=== PATIENT | female | born 1985 | race Hispanic/Latino ===

== ENCOUNTER 2017-08-11 22:29 | Emergency (ER) | payer OTHER, SELFPAY ==
[2017-08-11] MEDS ORDERED: ACETAMINOPHEN 500 MG TAB ONE (23:32)
--- NOTE | 2017-08-12 00:27 | ER ---
Nurse's Notes [facility] Name: Katerina Pendleton Age: 31 yrs Sex: Female : 1985 Arrival Date: 08/11/2017 Time: 22:30 Bed 18 Private MD: Diagnosis: Acute streptococcal tonsillitis, unspecified Presentation: 08/11 23:06 Presenting complaint: Patient states: she started feeling achy yesterday today she has bb a sore throat and sharp pain to r ear when swallowing also chills. Transition of care: patient was not received from another setting of care. Onset of symptoms was August 10, 2017. Care prior to arrival: None. 23:06 Method Of Arrival: Ambulatory bb 23:06 Acuity: MARILYN 4 bb Triage Assessment: 23:53 Respiratory: Onset: The symptoms/episode began/occurred today, the patient has mild jd3 shortness of breath. 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 - Social history:: Smoking status: Patient uses tobacco products, denies chronic smoking, but will smoke occasionally, Patient uses alcohol, but reports only rare drinking. Patient/guardian denies using street drugs. Screenin:52 Abuse screen: Denies threats or abuse. Nutritional screening: No deficits noted. jd3 Tuberculosis screening: No symptoms or risk factors identified. Fall Risk None identified. Assessment: 23:51 General: Appears uncomfortable, Behavior is cooperative, appropriate for age, anxious. jd3 Pain: Complains of pain in right ear Quality of pain is described as aching, sharp. Neuro: Level of Consciousness is awake, alert, obeys commands, Oriented to person, place, time, situation. Cardiovascular: Heart tones S1 S2 present Capillary refill < 3 seconds Patient's skin is warm and dry. Respiratory: Airway is patent Respiratory effort is even, unlabored, Respiratory pattern is regular, symmetrical, Breath sounds are clear bilaterally. GI: Abdomen is round Bowel sounds present X 4 quads. Abd is soft and non tender X 4 quads. Reports nausea. : No signs and/or symptoms were reported regarding the genitourinary system. EENT: No signs and/or symptoms were reported regarding the EENT system. Derm: Skin is intact, Skin is dry, Skin is normal, Skin temperature is warm. Musculoskeletal: Circulation, motion, and sensation intact. Range of motion: intact in all extremities. 08/12 00:19 Reassessment: Patient appears in no apparent distress at this time. Patient and/or jd3 family updated on plan of care and expected duration. Pain level reassessed. Patient is alert, oriented x 3, equal unlabored respirations, skin warm/dry/pink. pt resting in bed with eyes closed, even and unlabored respirations, no signs of distress noted at this time. 00:53 Reassessment: Patient appears in no apparent distress at this time. Patient and/or jd3 family updated on plan of care and expected duration. Pain level reassessed. Patient is alert, oriented x 3, equal unlabored respirations, skin warm/dry/pink. pt reported understanding of discharge instructions, even and steady gait upon discharge. Vital Signs: 08/11 23:08 BP 158 / 76; Pulse 117; Resp 20 S; Temp 100.4(TE); Pulse Ox 100% on R/A; Weight 117.93 bb kg (R); Height 5 ft. 3 in. (160.02 cm) (R); Pain 9/10; 08/12 00:18 BP 105 / 70; Pulse 117; Resp 17 S; Pulse Ox 98% on R/A; jd3 00:51 BP 123 / 76; Pulse 109; Resp 19 S; Temp 99.6(O); Pulse Ox 96% on R/A; jd3 08/11 23:08 Body Mass Index 46.06 (117.93 kg, 160.02 cm) bb ED Course: 08/11 22:30 Patient arrived in ED. ds1 23:07 Triage completed. bb 23:08 Arm band placed on Patient placed in waiting room. Family accompanied patient. bb 23:30 Ric Díaz PA is PHCP. jr8 23:30 Israel Hong MD is Attending Physician. jr8 23:51 Kameron Lim RN is Primary Nurse. jd3 23:53 Patient has correct armband on for positive identification. Bed in low position. Call jd3 light in reach. Side rails up X 1. Adult w/ patient. 08/12 00:02 X-ray completed. Portable x-ray completed in exam room. Patient tolerated procedure kw well. 00:05 XRAY Chest (1 view) In Process Unspecified. EDMS 00:52 No provider procedures requiring assistance completed. Patient did not have IV access jd3 during this emergency room visit. Administered Medications: 08/11 23:11 Drug: Tylenol 1000 mg Route: PO; bb 08/12 00:43 Follow up: Response: No adverse reaction jd3 00:51 Drug: Augmentin 875 mg Route: PO; jd3 00:51 Follow up: Response: Medication administered at discharge. jd3 Outcome: 00:27 Discharge ordered by . vickie 00:52 Discharged to home ambulatory, with friend. jd3 00:52 Condition: stable 00:52 Discharge instructions given to patient, friend, Instructed on discharge instructions, follow up and referral plans. medication usage, Demonstrated understanding of instructions, follow-up care, medications, Prescriptions given X 2. 00:54 Patient left the ED. jd3 Signatures: Dispatcher [employer] EDLA Zina Kee ds1 Ana Castillo, RN RN bb Sadie Lara Josh, PA PA jr8 Kameron Lim RN RN jd3 Corrections: (The following items were deleted from the chart) 00:54 00:51 BP 123 / 76; Pulse 109bpm; Resp 19bpm; Spontaneous; Pulse Ox 93% RA; jd3 jd3
--- NOTE | 2017-08-12 00:27 | EDPHYS ---
Physician Documentation [facility] Name: Katerina Pendleton Age: 31 yrs Sex: Female : 1985 Arrival Date: 08/11/2017 Time: 22:30 Bed 18 Private MD: ED Physician Israel Hong HPI: 08/12 00:25 This 31 yrs old Female presents to ER via Ambulatory with complaints of jr8 Breathing Difficulty, Ear Pain, Chills. 00:25 The patient presents with sore throat. The patient describes throat pain as constant. jr8 Onset: The symptoms/episode began/occurred acutely, yesterday. Severity of symptoms: At their worst the symptoms were mild, in the emergency department the symptoms are unchanged. Modifying factors: The symptoms are alleviated by nothing, the symptoms are aggravated by nothing. Associated signs and symptoms: Pertinent positives: cough, shortness of breath. The patient has not experienced similar symptoms in the past. The patient has not recently seen a physician. 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 - Social history:: Smoking status: Patient uses tobacco products, denies chronic smoking, but will smoke occasionally, Patient uses alcohol, but reports only rare drinking. Patient/guardian denies using street drugs. ROS: 08/12 00:25 Eyes: Negative for injury, pain, redness, and discharge, Neck: Negative for injury, jr8 pain, and swelling, Cardiovascular: Negative for chest pain, palpitations, and edema, Abdomen/GI: Negative for abdominal pain, nausea, vomiting, diarrhea, and constipation, Back: Negative for injury and pain, MS/Extremity: Negative for injury and deformity, Skin: Negative for injury, rash, and discoloration, Neuro: Negative for headache, weakness, numbness, tingling, and seizure. ENT: Positive for sore throat, Negative for drainage from ear(s), ear pain, tinnitus, nasal discharge, rhinorrhea, sinus congestion. Respiratory: Positive for cough, Negative for shortness of breath, sputum production, wheezing. Exam: 00:25 Head/Face: Normocephalic, atraumatic. Eyes: Pupils equal round and reactive to light, jr8 extra-ocular motions intact. Lids and lashes normal. Conjunctiva and sclera are non-icteric and not injected. Cornea within normal limits. Periorbital areas with no swelling, redness, or edema. Neck: Trachea midline, no thyromegaly or masses palpated, and no cervical lymphadenopathy. Supple, full range of motion without nuchal rigidity, or vertebral point tenderness. No Meningismus. Cardiovascular: Sinus tachycardia with a normal S1 and S2. No gallops, murmurs, or rubs. Normal PMI, no JVD. No pulse deficits. Respiratory: Lungs have equal breath sounds bilaterally, clear to auscultation and percussion. No rales, rhonchi or wheezes noted. No increased work of breathing, no retractions or nasal flaring. Abdomen/GI: Soft, non-tender, with normal bowel sounds. No distension or tympany. No guarding or rebound. No evidence of tenderness throughout. Back: No spinal tenderness. No costovertebral tenderness. Full range of motion. Skin: Warm, dry with normal turgor. Normal color with no rashes, no lesions, and no evidence of cellulitis. MS/ Extremity: Pulses equal, no cyanosis. Neurovascular intact. Full, normal range of motion. Neuro: Awake and alert, GCS 15, oriented to person, place, time, and situation. Cranial nerves II-XII grossly intact. Motor strength 5/5 in all extremities. Sensory grossly intact. Cerebellar exam normal. Normal gait. 00:25 ENT: Exam is negative for earache, ear discharge, TM abnormalities, nasal discharge, Mouth: Lips: moist, Oral mucosa: pink and intact, moist, Gums: pink, Tongue: is moist, Posterior pharynx: Airway: patent, Tonsils: bilaterally enlarged, with erythema, with exudate, no ulcerations, Uvula: midline, non-edematous, no erythema, swelling, is not appreciated, erythema, is not appreciated. Vital Signs: 08/11 23:08 BP 158 / 76; Pulse 117; Resp 20 S; Temp 100.4(TE); Pulse Ox 100% on R/A; Weight 117.93 bb kg (R); Height 5 ft. 3 in. (160.02 cm) (R); Pain 9/10; 08/12 00:18 BP 105 / 70; Pulse 117; Resp 17 S; Pulse Ox 98% on R/A; jd3 00:51 BP 123 / 76; Pulse 109; Resp 19 S; Temp 99.6(O); Pulse Ox 96% on R/A; jd3 08/11 23:08 Body Mass Index 46.06 (117.93 kg, 160.02 cm) bb MDM: 08/11 23:30 Patient medically screened. jr8 08/12 00:25 Data reviewed: vital signs, nurses notes, lab test result(s), radiologic studies, plain jr8 films, and as a result, I will discharge patient. Data interpreted: Pulse oximetry: on room air is 98 %. Interpretation: normal. Counseling: I had a detailed discussion with the patient and/or guardian regarding: the historical points, exam findings, and any diagnostic results supporting the discharge/admit diagnosis, lab results, radiology results, the need for outpatient follow up, a family practitioner, to return to the emergency department if symptoms worsen or persist or if there are any questions or concerns that arise at home. 08/11 23:10 Order name: Flu; Complete Time: 00:24 08/11 23:10 Order name: Strep; Complete Time: 00:24 08/11 23:30 Order name: XRAY Chest (1 view) [facility] Administered Medications: 08/11 23:11 Drug: Tylenol 1000 mg Route: PO; 08/12 00:43 Follow up: Response: No adverse reaction jd3 00:51 Drug: Augmentin 875 mg Route: PO; jd3 00:51 Follow up: Response: Medication administered at discharge. jd3 Disposition: 02:00 Co-signature as Attending Physician, Israel Hong MD. pkl Disposition: 08/12/17 00:27 Discharged to Home. Impression: Acute streptococcal tonsillitis, unspecified. - Condition is Stable. - Discharge Instructions: Strep Throat, Tonsillitis. - Prescriptions for Augmentin 875- 125 mg Oral Tablet - take 1 tablet by ORAL route every 12 hours for 10 days; 20 tablet. Tessalon Perles 100 mg Oral Capsule - take 1 capsule by ORAL route every 8 hours As needed; 15 capsule. - Medication Reconciliation Form, Thank You Letter, Antibiotic Education, Prescription Opioid Use form. - Follow up: Private Physician; When: 2 - 3 days; Reason: Recheck today's complaints, Continuance of care, Re-evaluation by your physician. - Problem is new. - Symptoms have improved. Signatures: Dispatcher [employer] Israel Saravia MD MD pkl Ballard, Brenda, RN RN bb Ric Díaz PA PA jr8 Kameron Lim RN RN jd3
[2017-08-12] MEDS ORDERED: AMOX/K CLAV 875 MG TAB ONE (01:04)
--- NOTE | 2017-08-12 07:42 | RAD REPORT ---
EXAM DESCRIPTION: RAD - Chest Single View - 08/12/2017 12:03 am CLINICAL HISTORY: Cough, fever, body aches COMPARISON: None. TECHNIQUE: AP portable chest image was obtained 2351 hours . FINDINGS: Lungs are clear. Heart and vasculature are normal. No measurable pleural effusion and no p neumothorax. No gross bony abnormality seen. No acute aortic findings suspected. IMPRESSION: No acute cardiopulmonary process.
== END 2017-08-12 00:54 | disposition home or self-care (01) ==
LOC: ER 22:29
DX: J03.00 Acute streptococcal tonsillitis, unspecified (principal); Z72.0 Tobacco use
CPT/HCPCS: 71045; 87081; 87804; 99283

== ENCOUNTER 2018-03-14 07:36 | Emergency (ER) | payer SELFPAY ==
--- NOTE | 2018-03-14 08:20 | ER ---
Nurse's Notes [facility] Name: Katerina Pendleton Age: 32 yrs Sex: Female : 1985 Arrival Date: 03/14/2018 Time: 07:38 Bed 16 Private MD: Diagnosis: Acute laryngopharyngitis Presentation: 03/14 07:45 Presenting complaint: Patient states: sore throat for over a week, with pain when ch swallowing. taking prednisone and benzonate from a tele doctor. 07:45 Transition of care: patient was not received from another setting of care. Onset of ch symptoms was March 05, 2018. Risk Assessment: Do you want to hurt yourself or someone else? Patient reports no desire to harm self or others. Initial Sepsis Screen: Does the patient meet any 2 criteria? No. Patient's initial sepsis screen is negative. Does the patient have a suspected source of infection? No. Patient's initial sepsis screen is negative. Care prior to arrival: Medication(s) given: prednisone and benzonate. 07:45 Method Of Arrival: Ambulatory 07:45 Acuity: MARILYN 4 ch Triage Assessment: 08:00 General: Appears in no apparent distress. comfortable, Behavior is calm, cooperative, ch appropriate for age. Pain: Complains of pain in throat Pain currently is 8 out of 10 on a pain scale. Pain began gradually, over a week ago. EENT: Nares are clear Oral mucosa is moist. Good dentition noted. Throat is reddened has patchy exudate has enlarged tonsils bilaterally with gag reflex present, Reports nasal congestion pain when swallowing. Neuro: No deficits noted. Cardiovascular: No deficits noted. Respiratory: Airway is patent Respiratory effort is even, unlabored, Breath sounds are clear bilaterally. GI: No signs and/or symptoms were reported involving the gastrointestinal system. : No signs and/or symptoms were reported regarding the genitourinary system. Derm: Skin is pink, warm \T\ dry. 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 - Social history:: Smoking status: Patient uses tobacco products, denies chronic smoking, but will smoke occasionally. - Family history:: not pertinent. - Ebola Screening: : Patient negative for fever greater than or equal to 101.5 degrees Fahrenheit, and additional compatible Ebola Virus Disease symptoms Patient denies exposure to infectious person Patient denies travel to an Ebola-affected area in the 21 days before illness onset No symptoms or risks identified at this time. - Hospitalizations: : No recent hospitalization is reported. Screenin:03 Abuse screen: Denies threats or abuse. Denies injuries from another. Nutritional ch screening: No deficits noted. Tuberculosis screening: No symptoms or risk factors identified. Fall Risk None identified. Assessment: 08:03 Reassessment: Patient appears in no apparent distress at this time. Patient and/or family updated on plan of care and expected duration. Pain level reassessed. Patient is alert, oriented x 3, equal unlabored respirations, skin warm/dry/pink. Respiratory: Airway is patent Trachea midline Respiratory effort is even, unlabored. 08:32 Reassessment: Patient appears in no apparent distress at this time. No changes from previously documented assessment. Patient and/or family updated on plan of care and expected duration. Pain level reassessed. Patient is alert, oriented x 3, equal unlabored respirations, skin warm/dry/pink. Respiratory: No deficits noted. Breath sounds are clear bilaterally. Vital Signs: 07:45 BP 128 / 85; Pulse 78; Resp 16; Temp 99; Pulse Ox 100% on R/A; Weight 117.93 kg; Height 5 ft. 3 in. (160.02 cm); Pain 8/10; 08:32 BP 118 / 62; Pulse 65; Resp 14; Temp 99.2; Pulse Ox 99% on R/A; Pain 6/10; ch 07:45 Body Mass Index 46.06 (117.93 kg, 160.02 cm) ED Course: 07:38 Patient arrived in ED. as 07:44 Jing Lock, RN is Primary Nurse. ch 07:45 Matthias Whitfield MD is Attending Physician. rn 07:45 Arm band placed on left wrist. Patient placed in an exam room, on a stretcher. 07:59 Triage completed. 08:03 No apparent distress. Resting quietly. 08:03 Patient has correct armband on for positive identification. Placed in gown. Bed in low ch position. Call light in reach. Side rails up X 1. 08:03 No provider procedures requiring assistance completed. Patient did not have IV access during this emergency room visit. Administered Medications: No medications were administered Outcome: 08:19 Discharge ordered by . rn 08:32 Discharged to home ambulatory, with family. 08:32 Condition: improved 08:32 Discharge instructions given to patient, Instructed on discharge instructions, follow up and referral plans. Demonstrated understanding of instructions, follow-up care. 08:33 Patient left the ED. Signatures: Jing Lock RN RN Babs García Roman, MD MD rn
--- NOTE | 2018-03-14 08:20 | EDPHYS ---
Physician Documentation [facility] Name: Katerina Pendleton Age: 32 yrs Sex: Female : 1985 Arrival Date: 03/14/2018 Time: 07:38 Bed 16 Private MD: ED Physician Matthias Whitfield HPI: 03/14 07:50 This 32 yrs old Female presents to ER via Unassigned with complaints of Sore rn Throat. 07:50 The patient presents with sore throat. The patient describes throat pain as raw, rn scratchy. Onset: The symptoms/episode began/occurred 1 week(s) ago. Severity of symptoms: At their worst the symptoms were mild, in the emergency department the symptoms are unchanged. Modifying factors: The symptoms are alleviated by nothing, the symptoms are aggravated by swallowing. The patient has experienced similar episodes in the past. REports sore throat, raw, for 1 week, called doctor on demand, prescribed steroids and cough medication, told was viral infection, got better, then symptoms returned, no fever. . 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 - Social history:: Smoking status: Patient uses tobacco products, denies chronic smoking, but will smoke occasionally. - Family history:: not pertinent. - Ebola Screening: : Patient negative for fever greater than or equal to 101.5 degrees Fahrenheit, and additional compatible Ebola Virus Disease symptoms Patient denies exposure to infectious person Patient denies travel to an Ebola-affected area in the 21 days before illness onset No symptoms or risks identified at this time. - Hospitalizations: : No recent hospitalization is reported. ROS: 07:50 Constitutional: Negative for fever, chills, and weight loss, ENT: + sore throat Neck: rn Negative for injury Cardiovascular: Negative for chest pain, palpitations, and edema, Respiratory: Negative for shortness of breath, cough, wheezing, and pleuritic chest pain. Exam: 07:50 Constitutional: This is a well developed, well nourished patient who is awake, alert, rn and in no acute distress. ENT: Mild pharyngeal erythema, + palatal petechiae, no tonsillar hypertrophy, no evidence of LEISURE STUDIES PROFESSOR. No stridor. Vital Signs: 07:45 BP 128 / 85; Pulse 78; Resp 16; Temp 99; Pulse Ox 100% on R/A; Weight 117.93 kg; Height ch 5 ft. 3 in. (160.02 cm); Pain 8/10; 08:32 BP 118 / 62; Pulse 65; Resp 14; Temp 99.2; Pulse Ox 99% on R/A; Pain 6/10; ch 07:45 Body Mass Index 46.06 (117.93 kg, 160.02 cm) ch MDM: 07:45 Patient medically screened. rn 08:18 Differential diagnosis: group A strep tonsillitis, laryngitis, pharyngitis, upper rn respiratory infection, viral syndrome. Data reviewed: vital signs, nurses notes, lab test result(s), and as a result, I will discharge patient. Counseling: I had a detailed discussion with the patient and/or guardian regarding: the historical points, exam findings, and any diagnostic results supporting the discharge/admit diagnosis, lab results, the need for outpatient follow up, to return to the emergency department if symptoms worsen or persist or if there are any questions or concerns that arise at home. Special discussion: I discussed with the patient/guardian in detail that at this point there is no indication for admission to the hospital. It is understood, however, that if the symptoms persist or worsen the patient needs to return immediately for re-evaluation. 03/14 07:49 Order name: Strep; Complete Time: 08:15 rn 03/14 08:17 Order name: Throat Culture EDMS Administered Medications: No medications were administered Disposition: 03/14/18 08:19 Discharged to Home. Impression: Acute laryngopharyngitis. - Condition is Stable. - Discharge Instructions: Laryngitis, Pharyngitis. - Medication Reconciliation Form, Thank You Letter, Antibiotic Education, Prescription Opioid Use form. - Follow up: Private Physician; When: As needed; Reason: Recheck today's complaints, Re-evaluation by your physician. - Problem is new. - Symptoms have improved. Signatures: Dispatcher [employer] EDMS Jing Lock RN RN Matthias Whitfield MD MD equine internship: (The following items were deleted from the chart) 08:33 08:19 03/14/2018 08:19 Discharged to Home. Impression: Acute laryngopharyngitis. ch Condition is Stable. Forms are Medication Reconciliation Form, Thank You Letter, Antibiotic Education, Prescription Opioid Use. Follow up: Private Physician; When: As needed; Reason: Recheck today's complaints, Re-evaluation by your physician. Problem is new. Symptoms have improved. rn
== END 2018-03-14 08:33 | disposition home or self-care (01) ==
LOC: ER 07:36
DX: J06.0 Acute laryngopharyngitis (principal)
CPT/HCPCS: 87070; 87081; 99281

== ENCOUNTER 2020-10-30 22:24 | Emergency (ER) | payer BC ==
--- OUTSIDE RECORDS SUMMARY | 2020-10-30 22:27 | XMS REPORT | Continuity of Care Document ---
:1985 Author Organization [facility] t Address [address] [place] [address] Care Team Providers Name Role Phone Pratik Galdamez DO Attending Clinician Manasa Elias Attending Clinician Doctor Unassigned, Name Attending Clinician Unavailable Problems This patient has no known problems. Allergies, Adverse Reactions, Alerts This patient has no known allergies or adverse reactions. Medications This patient has no known medications. Procedures This patient has no known procedures. 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
[2020-10-31] MEDS ORDERED: MORPHINE 4 MG/ML SYR ONE (00:03)
[2020-10-31] MEDS ORDERED: CLINDAMYCIN 900MG/D5W 900 MG/50 ML IVPB IV ONE (00:03)
[2020-10-31] MEDS ORDERED: ONDANSETRON 4 MG/2 ML VIAL ONE (00:03)
--- NOTE | 2020-10-31 00:40 | EDPHYS ---
Physician Documentation [facility] Name: Katerina Pendleton Age: 34 yrs Sex: Female : 1985 Arrival Date: 10/30/2020 Time: 22:35 Bed 23 Private MD: ED Physician Jamey Joy HPI: 10/30 23:36 This 34 yrs old Female presents to ER via Ambulatory with complaints of Facial jmm Swelling. 23:36 The patient or guardian reports pain, swelling. The complaints affect the right cheek. jmm Onset: The symptoms/episode began/occurred gradually, 1 day(s) ago. Associated signs and symptoms: Loss of consciousness: This patient did not experience any loss of consciousness. Pertinent negatives:. This is a 34 year old female with no chronic medical conditions that presents to the ED with complaints of right sided facial swelling. Began augmentin yesterday with no relief. . 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 - Social history:: Smoking status: Patient denies any tobacco usage or history of. ROS: 23:36 Constitutional: Negative for fever, chills, and weight loss, Cardiovascular: Negative jmm for chest pain, palpitations, and edema, Respiratory: Negative for shortness of breath, cough, wheezing, and pleuritic chest pain, Abdomen/GI: Negative for abdominal pain, nausea, vomiting, diarrhea, and constipation. 23:36 Skin: Positive for erythema. 23:36 All other systems are negative. Exam: 23:36 Constitutional: This is a well developed, well nourished patient who is awake, alert, jmm and in no acute distress. 23:36 Neck: Trachea midline, Supple Chest/axilla: Normal chest wall appearance and motion. Cardiovascular: Regular rate and rhythm. No edema appreciated Respiratory: Normal respirations, no respiratory distress appreciated Abdomen/GI: Non distended, soft Back: Normal ROM 23:36 Head/face: right sided facial swelling noted. 23:36 ENT: no submandibular swelling or pain, . 23:36 Skin: erythema noted to the right side of the cheek. 23:36 Neuro: Orientation: is normal, Mentation: is normal, Memory: is normal. 23:36 Psych: Behavior/mood is pleasant, cooperative. Vital Signs: 23:03 BP 114 / 61; Pulse 78; Resp 19; Temp 97; Pulse Ox 99% ; Weight 99.79 kg; Height 5 ft. 3 ea in. (160.02 cm); Pain 8/10; 23:03 Body Mass Index 38.97 (99.79 kg, 160.02 cm) ea MDM: 23:28 Patient medically screened. [facility] 10/31 00:38 Data reviewed: vital signs, nurses notes. Counseling: I had a detailed discussion with [facility] the patient and/or guardian regarding: the historical points, exam findings, and any diagnostic results supporting the discharge/admit diagnosis, the need for outpatient follow up, to return to the emergency department if symptoms worsen or persist or if there are any questions or concerns that arise at home. ED course: Patient will follow up with oral surgery tomorrow. Patient given strict return precautions. I do not suspect ludwigs angina. 10/30 23:35 Order name: Saline Lock; Complete Time: 23:52 [facility] Administered Medications: 10/30 23:47 Drug: Zofran (Ondansetron) 4 mg Route: IVP; Site: right antecubital; em 10/31 00:02 Follow up: Response: No adverse reaction em 10/30 23:50 Drug: morphine 4 mg Route: IVP; Site: right antecubital; em 10/31 00:02 Follow up: Response: No adverse reaction; Marked relief of symptoms; Pain is decreased; em RASS: Alert and Calm (0) 10/30 23:54 Drug: Clindamycin 900 mg Route: IVPB; Infused Over: 30 mins; Site: right antecubital; em 10/31 00:21 Follow up: Response: No adverse reaction; IV Status: Completed infusion; IV Intake: 50mlem Disposition: 04:15 Co-signature as Attending Physician, Jamey Joy MD. [email or web address] Disposition: 10/31/20 00:39 Discharged to Home. Impression: Facial Cellulitis. - Condition is Stable. - Discharge Instructions: Dental Abscess. - Prescriptions for Clindamycin HCl 300 mg Oral Capsule - take 1 capsule by ORAL route every 6 hours for 10 days; 40 capsule. Ultracet 37.5- 325 mg Oral Tablet - take 1 tablet by ORAL route every 6 hours - for up to 5 days; do not exceed 8 tablets per day.; 12 tablet. - Medication Reconciliation Form, Thank You Letter, Antibiotic Education, Prescription Opioid Use form. - Follow up: Bhavin Henry DDS; When: 2 - 3 days; Reason: Recheck today's complaints, Continuance of care, Re-evaluation by your physician. Signatures: Martin Sanches PA PA jmm Munoz, Edgar, RN RN Bernadette Albrecht RN RN Jamey Adams MD MD [email or web address] Corrections: (The following items were deleted from the chart) 00:48 00:39 10/31/2020 00:39 Discharged to Home. Impression: Facial Cellulitis. Condition is em Stable. Forms are Medication Reconciliation Form, Thank You Letter, Antibiotic Education, Prescription Opioid Use. Follow up: Bhavin Henry; When: 2 - 3 days; Reason: Recheck today's complaints, Continuance of care, Re-evaluation by your physician. katie
--- NOTE | 2020-10-31 00:40 | ER ---
Nurse's Notes [facility] Name: Katerina Pendleton Age: 34 yrs Sex: Female : 1985 Arrival Date: 10/30/2020 Time: 22:35 Bed 23 Private MD: Diagnosis: Facial Cellulitis Presentation: 10/30 23:03 Chief complaint: Patient states: Reports tooth pain that started two days ago reports ea calling [facility] they prescribed her antibiotics. Pt reports facial swelling and pain that does not go away even after using BC powder and ibuprofen. Coronavirus screen: At this time, the client does not indicate any symptoms associated with coronavirus-19. Ebola Screen: No symptoms or risks identified at this time. Initial Sepsis Screen: Does the patient meet any 2 criteria? No. Patient's initial sepsis screen is negative. Does the patient have a suspected source of infection? No. Patient's initial sepsis screen is negative. Risk Assessment: Do you want to hurt yourself or someone else? Patient reports no desire to harm self or others. Onset of symptoms was October 30, 2020. 23:03 Method Of Arrival: Ambulatory ea 23:03 Acuity: MARILYN 3 ea Triage Assessment: 23:07 General: Appears uncomfortable, Behavior is calm, cooperative, appropriate for age. ea Pain: Complains of pain in right side of head. 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 - Social history:: Smoking status: Patient denies any tobacco usage or history of. Screenin:07 Abuse screen: Denies threats or abuse. Nutritional screening: No deficits noted. ea Tuberculosis screening: No symptoms or risk factors identified. Fall Risk None identified. Assessment: 23:20 General: Appears in no apparent distress. uncomfortable, Behavior is calm, cooperative, em Denies fever. Pain: Complains of pain in right side of head Pain currently is 8 out of 10 on a pain scale. Neuro: Level of Consciousness is awake, alert, obeys commands, Oriented to person, place, time, situation. Cardiovascular: Capillary refill < 3 seconds Patient's skin is warm and dry. Respiratory: Airway is patent Respiratory effort is even, unlabored, Respiratory pattern is regular, symmetrical. Derm: Skin is intact, is healthy with good turgor, Skin is pink, warm \T\ dry. Musculoskeletal: Capillary refill < 3 seconds, Range of motion: intact in all extremities. 10/31 00:01 Reassessment: Patient appears in no apparent distress at this time. Patient and/or em family updated on plan of care and expected duration. Pain level reassessed. Patient is alert, oriented x 3, equal unlabored respirations, skin warm/dry/pink. Patient states feeling better. Patient states symptoms have improved. Vital Signs: 10/30 23:03 BP 114 / 61; Pulse 78; Resp 19; Temp 97; Pulse Ox 99% ; Weight 99.79 kg; Height 5 ft. 3 ea in. (160.02 cm); Pain 8/10; 23:03 Body Mass Index 38.97 (99.79 kg, 160.02 cm) ea ED Course: 22:35 Patient arrived in ED. am4 23:06 Triage completed. ea 23:20 Iam Hudson, RN is Primary Nurse. em 23:20 Arm band placed on. em 23:21 Patient has correct armband on for positive identification. Pulse ox on. NIBP on. em 23:25 Martin Sanches PA is PHCP. [facility] 23:26 Jamey Joy MD is Attending Physician. [facility] 23:26 Warm blanket given. [facility] 23:47 Inserted saline lock: 22 gauge in right antecubital area, using aseptic technique. em 10/31 00:39 Bhavin Henry DDS is Referral Physician. [facility] 00:47 No provider procedures requiring assistance completed. IV discontinued, intact, em bleeding controlled, No redness/swelling at site. Pressure dressing applied. Administered Medications: 10/30 23:47 Drug: Zofran (Ondansetron) 4 mg Route: IVP; Site: right antecubital; em 10/31 00:02 Follow up: Response: No adverse reaction em 10/30 23:50 Drug: morphine 4 mg Route: IVP; Site: right antecubital; em 10/31 00:02 Follow up: Response: No adverse reaction; Marked relief of symptoms; Pain is decreased; em RASS: Alert and Calm (0) 10/30 23:54 Drug: Clindamycin 900 mg Route: IVPB; Infused Over: 30 mins; Site: right antecubital; em 10/31 00:21 Follow up: Response: No adverse reaction; IV Status: Completed infusion; IV Intake: 50mlem Intake: 00:21 IV: 50ml; Total: 50ml. em Outcome: 00:39 Discharge ordered by MD. wilson 00:47 Discharged to home ambulatory, with family. em 00:47 Condition: improved 00:47 Discharge instructions given to patient, Instructed on discharge instructions, follow up and referral plans. medication usage, Demonstrated understanding of instructions, follow-up care, medications, Prescriptions given X 2. 00:48 Patient left the ED. em Signatures: Martin Sanches PA PA jmm Munoz, Edgar, RN Kristie Garcia [facility] Bernadette Morin, RN Fauzia Layton ea [facility]
[2020-10-31 01:06] VITALS: BP 114/61; TEMP 97; O2SAT 99
== END 2020-10-31 00:48 | disposition home or self-care (01) ==
LOC: ER 22:24
DX: L03.211 Cellulitis of face (principal)
CPT/HCPCS: 96365; 96375; 99284